=== PATIENT | female | born 1960 | race Caucasian/White ===

== ENCOUNTER 2019-04-21 12:19 | Emergency (ER) | payer BC ==
[~2019-04-21] VITALS: Ht 165.1 cm; Wt 68.0 kg
[2019-04-21] MEDS ORDERED: MIDO10TA PO (12:27)
--- NOTE | 2019-04-21 12:44 | NUR ---
PT TO ED FOR 2 POSS TIAs TODAY AT 11:30 AND 12:30. PT STATES 2 WEEKS POST OP LEFT SIDED BRAIN SURGERY. PT STATES LEFT HAND, ARM AND FACE WENT NUMB AND TINGLY DURING EPISODES. ALL S/S ARE RESOLVED UPON ARRIVAL. PT STATES SWANN AND REQUESTS TYLENOL. EDMD PRESENT FR ASSESSMENT AND AWARE OF REQUEST. PT CONNECTED TO MONITORS. HTN 190S/90S, ALL OTHER VSS ON RA. IV ESTABLISHED AND LABS DRAWN. AWAITING RESULTS.
[2019-04-21] MEDS ORDERED: ACETAMINOPHEN 500 MG TABLET ONE (12:50)
[2019-04-21 12:55] LABS: BASOPHILS # (AUTO) 0.02 x10^3/uL (0-0.1); BASOPHILS % (AUTO) 0 % (0-1); EOSINOPHILS # (AUTO) 0.06 x10^3/uL (0-0.4); EOSINOPHILS % (AUTO) 1 % (1-7); LYMPHOCYTES # (AUTO) 2.21 x10^3/uL (1-3.4); LYMPHOCYTES % (AUTO) 28 % (22-44); MD NO; MEAN CORPUSCULAR HEMOGLOBIN 30.8 pg (27.0-34.8); MEAN CORPUSCULAR HGB CONC 32.7 g/dL (32.4-35.8); MEAN CORPUSCULAR VOLUME 94.3 fL (80-100); MEAN PLATELET VOLUME 7.1 fL (7.4-10.4); MONOCYTES # (AUTO) 0.64 x10^3/uL (0.2-0.8); MONOCYTES % (AUTO) 8 % (2-9); NEUTROPHILS % (AUTO) 63 % (42-75); PLATELET COUNT 400 x10^3/uL (130-400); RED BLOOD COUNT 4.54 x10^6/uL (3.82-5.3); RED CELL DISTRIBUTION WIDTH 13.6 % (9.6-15.2)
[2019-04-21] MEDS ORDERED: ACETAMINOPHEN 325 MG TABLET PO ONE (13:00)
[2019-04-21] MEDS ORDERED: SODIUM CHLORIDE FLUSH 10ML SYR IVF ONE (13:00)
[2019-04-21 13:01] LABS: HCT (SEDRATE) 42.8 % (34.6-47.8)
[2019-04-21 13:06] LABS: ALANINE AMINOTRANSFERASE 39 U/L (12-78); ALBUMIN 4.3 g/dL (3.4-5.0); ANION GAP 8 mmol/L (5-15); CALCIUM 9.6 mg/dL (8.5-10.1); CHLORIDE 110 mmol/L (98-107); CREATININE 0.87 mg/dL (0.55-1.02)
--- NOTE | 2019-04-21 13:06 | NUR ---
pt to mri
[2019-04-21 13:08] LABS: ALKALINE PHOSPHATASE 79 U/L (45-117); BILIRUBIN,TOTAL 0.2 mg/dL (0.2-1.0); TOTAL PROTEIN 7.7 g/dL (6.4-8.2)
[2019-04-21] MEDS ORDERED: PLEASE ENTER ALLERGIES MC SCH (13:30)
[2019-04-21] MEDS ORDERED: ONDANSETRON 2MG/ML, 2ML ONE (15:25)
[2019-04-21] MEDS ORDERED: MORPHINE SULFATE 4 MG/ML, 1ML ONE (15:25)
[2019-04-21] MEDS ORDERED: ONDANSETRON 2MG/ML, 2ML IVPush ONE (15:30)
[2019-04-21] MEDS ORDERED: MORPHINE SULFATE 4 MG/ML, 1ML IVPush PRN (15:30)
[2019-04-21 16:05] VITALS: BP 187/88
== END 2019-04-21 16:08 | disposition home or self-care (01) ==
LOC: ED 14:10
DX: G46.0 Middle cerebral artery syndrome (principal); G45.8 Other transient cerebral ischemic attacks and related syndromes; I10 Essential (primary) hypertension
CPT/HCPCS: 36415; 70553; 80053; 83735; 85025; 85651; 93005; 96374; 96375; 99284; J2270; J2405